=== PATIENT | female | born 1970 | race Caucasian/White ===

== ENCOUNTER 2016-10-02 12:42 | Outpatient (CLI) | payer OTHER | END 2016-10-02 19:03 | disposition home or self-care (01) | LOC: SMA 12:42 | PROVIDERS: ATTEND Family Medicine | DX: Z12.31 Encounter for screening mammogram for malignant neoplasm of breast (principal) | CPT/HCPCS: 77067; G0202 ==

== ENCOUNTER 2018-02-25 16:05 | Outpatient (CLI) | payer BC | END 2018-02-25 22:14 | disposition home or self-care (01) | LOC: SMA 16:05 | PROVIDERS: ATTEND Family Medicine | DX: Z12.31 Encounter for screening mammogram for malignant neoplasm of breast (principal) | CPT/HCPCS: 77067 ==

== ENCOUNTER 2019-03-02 08:50 | Outpatient (CLI) | payer BC | END 2019-03-02 20:30 | disposition home or self-care (01) | LOC: SMA 08:50 | PROVIDERS: ATTEND Family Medicine | DX: Z12.31 Encounter for screening mammogram for malignant neoplasm of breast (principal) | CPT/HCPCS: 77067 ==